=== PATIENT | female | born 1985 | race Caucasian/White ===

== ENCOUNTER → 2017-11-24 | Outpatient (REF) | payer BC | LOC: M SFHCLERA 14:42 | DX: J02.9 Acute pharyngitis, unspecified (principal) ==

== ENCOUNTER → 2017-11-29 | Outpatient (CLI) | payer BC | LOC: M LRY 18:49 | DX: R05 Cough (principal) ==

== ENCOUNTER → 2018-09-30 | Outpatient (REF) | payer BC | LOC: M SFHCLERA 10:48 | PROVIDERS: ATTEND Nurse Practitioner Family | DX: R30.0 Dysuria (principal) ==

== ENCOUNTER 2019-04-17 01:51 | Emergency (ER) | payer BC ==
[~2019-04-17] VITALS: Ht 165.1 cm; Wt 110.0 kg
[2019-04-17 01:52] VITALS: BP 173/102
[2019-04-17] MEDS ORDERED: ESCI10TA2 (02:05)
[2019-04-17] MEDS ORDERED: PROAAER10 (02:05)
[2019-04-17] MEDS ORDERED: IBUP-1022 PO (02:05)
[2019-04-17] MEDS ORDERED: CLIN300C5 (02:05)
== END 2019-04-17 03:46 | disposition home or self-care (01) ==
LOC: M ED 01:51
DX: K04.7 Periapical abscess without sinus (principal); S02.5XXA Fracture of tooth (traumatic), initial encounter for closed fracture; X58.XXXA Exposure to other specified factors, initial encounter; Y92.9 Unspecified place or not applicable; Y93.9 Activity, unspecified; Y99.9 Unspecified external cause status; E28.2 Polycystic ovarian syndrome; J45.909 Unspecified asthma, uncomplicated; Z79.899 Other long term (current) drug therapy; Z88.0 Allergy status to penicillin; Z88.8 Allergy status to other drugs, medicaments and biological substances

== ENCOUNTER 2019-07-30 07:08 | Emergency (ER) | payer BC ==
[~2019-07-30] VITALS: Ht 165.1 cm; Wt 110.0 kg
[~2019-07-30 07:08] MED LIST: CLIN300C5; ESCI10TA2; IBUP-1022 PO; PROAAER10
[2019-07-30 08:36] LABS: BASO % 0.4 % (0.0-1.0); EOS # 0.1 10^3/uL (0.0-0.5); EOS % 1.9 % (0.0-3.0); HEMATOCRIT 40.8 % (36.0-47.0); HEMOGLOBIN 13.6 g/dl (12.0-15.5); LYMPH # 1.1 10^3/uL (1.5-5.0); LYMPH % 16.5 % (24.0-44.0); MEAN CORPUSCULAR HEMOGLOBIN 26.4 pg (27.0-33.0); MEAN CORPUSCULAR HGB CONC 33.3 g/dl (32.0-36.5); MEAN CORPUSCULAR VOLUME 79.1 fl (80.0-96.0); MONO # 0.3 10^3/uL (0.0-0.8); MONO % 3.8 % (0.0-5.0); NEUTROPHILS # 5.3 10^3/uL (1.5-8.5); NEUTROPHILS % 77.1 % (36.0-66.0); PLATELET COUNT, AUTOMATED 300 10^3/uL (150-450); RED BLOOD COUNT 5.16 10^6/uL (4.00-5.40); WHITE BLOOD COUNT 6.9 10^3/uL (4.0-10.0)
[2019-07-30 09:00] LABS: BILIRUBIN,DIRECT 0.1 MG/DL (0.0-0.2); BILIRUBIN,TOTAL 0.3 MG/DL (0.2-1.0)
[2019-07-30] MEDS ORDERED: NS 1,000 ML IV ONE (09:00)
--- NOTE | 2019-07-30 09:23 | REP ---
CT abdomen and pelvis without IV or oral contrast: Renal stone protocol. History: Left flank pain. Comparison study: September 14, 2018. CT findings: Preliminary digital public health staff nurse radiograph is unremarkable. The lung bases are clear. Liver is normal in size, homogeneous in texture. The spleen is at the upper range of normal in size measuring 13 cm in greatest diameter. It is homogeneous. It is unchanged. No abnormalities noted in the gallbladder or in the pancreas. No adrenal lesion is seen on either side. There is no evidence of hydronephrosis or intrarenal calculus. No ureteral calculus or bladder stone is seen. There are phleboliths in the pelvis. No uterine or ovarian abnormality is observed. Small and large intestinal bowel loops are normal in the abdomen and pelvis. The appendix is surgically absent. There is a supraumbilical ventral hernia transmitting omental fat through a abdominal wall defect measuring only 7 mm in craniocaudal span. This is unchanged. No other abdominal wall defect is seen. Impression: No acute intra-abdominal abnormality. Ventral hernia transmitting a small quantity of omental fat in the supraumbilical midline. Status post appendectomy. No urinary tract calculus or hydronephrosis seen. Borderline size spleen unchanged. Electronically Signed by Constantino Rivera MD 07/30/2019 09:49 A
[2019-07-30] MEDS ORDERED: LIDOCAINE 5% (LIDODERM) PATCH TD ONE (09:45)
[2019-07-30] MEDS ORDERED: ROBA750T4 PO (09:56)
[2019-07-30] MEDS ORDERED: ACETAMINOPHEN 500 MG TAB PO ONE (10:00)
[2019-07-30 10:01] VITALS: BP 144/96
[2019-07-30] MEDS ORDERED: **NOTE PATIENT COMMENT** MISC XX SCH (21:00)
== END 2019-07-30 10:08 | disposition home or self-care (01) ==
LOC: M ED 07:08
DX: S39.012A Strain of muscle, fascia and tendon of lower back, initial encounter (principal); K43.9 Ventral hernia without obstruction or gangrene; R73.9 Hyperglycemia, unspecified; Z88.0 Allergy status to penicillin; Z88.1 Allergy status to other antibiotic agents; Y93.9 Activity, unspecified; Y92.89 Other specified places as the place of occurrence of the external cause

== ENCOUNTER → 2019-10-11 | Outpatient (CLI) | payer BC ==
[~2019-10-11] MED LIST changes: +ROBA750T4 PO
--- NOTE | 2019-10-11 13:46 | REP ---
CHEST, TWO VIEWS: Two views of the chest are performed and compared to a prior study of 11/29/2017. Prominent left cardiophrenic fat pad is noted. There is mild left perihilar infiltrate. Right lung is clear. The heart is not enlarged. Mediastinal silhouette otherwise appear unremarkable. There are mild degenerative changes of the spine. IMPRESSION: Mild left perihilar infiltrate. Electronically Signed by Jason Corado MD 10/11/2019 11:02 P
== END ==
LOC: M LRY 12:26
PROVIDERS: ATTEND Nurse Practitioner Family
DX: R05 Cough (principal)

== ENCOUNTER → 2021-10-15 | Outpatient (REF) ==
[~2021-10-15] MED LIST changes: +CLIN-250; -CLIN300C5; +ESCI10TA16; -ESCI10TA2
== END ==
LOC: M LABSMTC 09:22
PROVIDERS: ATTEND Pediatrics
DX: Z20.822 Contact with and (suspected) exposure to COVID-19 (principal)

== ENCOUNTER 2023-01-27 01:40 | Emergency (ER) | payer BC ==
[~2023-01-27] VITALS: Ht 165.1 cm; Wt 114.8 kg
[2023-01-27 02:13] LABS: BASO % 0.3 % (0.0-1.0); EOS # 0.1 10^3/uL (0.0-0.5); EOS % 1.9 % (0.0-3.0); HEMATOCRIT 36.2 % (36.0-47.0); LYMPH # 2.1 10^3/uL (1.5-5.0); LYMPH % 33.7 % (24.0-44.0); MEAN CORPUSCULAR HEMOGLOBIN 25.6 pg (27.0-33.0); MEAN CORPUSCULAR HGB CONC 33.1 g/dl (32.0-36.5); MEAN CORPUSCULAR VOLUME 77.4 fl (80.0-96.0); MONO # 0.4 10^3/uL (0.0-0.8); NEUTROPHILS # 3.5 10^3/uL (1.5-8.5); NEUTROPHILS % 56.9 % (36.0-66.0); PLATELET COUNT, AUTOMATED 281 10^3/uL (150-450); RED BLOOD COUNT 4.68 10^6/uL (4.00-5.40); WHITE BLOOD COUNT 6.2 10^3/uL (4.0-10.0)
[2023-01-27 02:57] LABS: BLOOD UREA NITROGEN 9 MG/DL (9-23); CALCIUM LEVEL 8.7 MG/DL (8.5-10.1); CARBON DIOXIDE LEVEL 25 MMOL/L (20-31); CHLORIDE LEVEL 105 MMOL/L (98-107); CK-MB VALUE MASS < 1.0 NG/ML (<3.6); CPK CREATINE PHOSPHOKINASE 60 U/L (34-145); CREATININE FOR GFR 0.88 MG/DL (0.55-1.30); GLOMERULAR FILTRATION RATE > 60.0 (>60); GLUCOSE, FASTING 130 MG/DL (60-100); MB/CK RELATIVE INDEX 1.66 (< OR =4); POTASSIUM SERUM 3.6 MMOL/L (3.5-5.1); SODIUM LEVEL 138 MMOL/L (136-145)
[2023-01-27 04:13] LABS: CK-MB VALUE MASS < 1.0 NG/ML (<3.6)
[2023-01-27 05:24] LABS: CPK CREATINE PHOSPHOKINASE 62 U/L (34-145); MB/CK RELATIVE INDEX 1.61 (< OR =4)
[2023-01-27 07:23] VITALS: BP 156/87
[2023-01-27] MEDS ORDERED: GI COCKTAIL 50ML BTL(HYOSCYAMINE/MAALOX/LIDOCAINE VISCOUS)(1:3:1) PO ONE (07:50)
== END 2023-01-27 08:58 | disposition home or self-care (01) ==
LOC: M ED 01:40
DX: M94.0 Chondrocostal junction syndrome [Tietze] (principal); R21 Rash and other nonspecific skin eruption; K30 Functional dyspepsia; K21.9 Gastro-esophageal reflux disease without esophagitis; J45.909 Unspecified asthma, uncomplicated; F41.9 Anxiety disorder, unspecified; Z88.0 Allergy status to penicillin; Z88.1 Allergy status to other antibiotic agents; Z79.52 Long term (current) use of systemic steroids; Z79.899 Other long term (current) drug therapy

== ENCOUNTER 2023-12-29 15:40 | Emergency (ER) | payer BC ==
[~2023-12-29] VITALS: Ht 165.1 cm; Wt 113.0 kg
[2023-12-29 16:41] LABS: BASO % 0.3 % (0.0-1.0); EOS # 0.1 10^3/uL (0.0-0.5); EOS % 1.2 % (0.0-3.0); HEMATOCRIT 39.2 % (36.0-47.0); HEMOGLOBIN 13.2 g/dl (12.0-15.5); LYMPH # 1.8 10^3/uL (1.5-5.0); MEAN CORPUSCULAR HEMOGLOBIN 26.4 pg (27.0-33.0); MEAN CORPUSCULAR HGB CONC 33.7 g/dl (32.0-36.5); MEAN CORPUSCULAR VOLUME 78.4 fl (80.0-96.0); MONO # 0.5 10^3/uL (0.0-0.8); MONO % 7.2 % (2.0-8.0); NEUTROPHILS # 4.4 10^3/uL (1.5-8.5); NEUTROPHILS % 65.2 % (36.0-66.0); PLATELET COUNT, AUTOMATED 314 10^3/uL (150-450); WHITE BLOOD COUNT 6.8 10^3/uL (4.0-10.0)
[2023-12-29 16:53] LABS: INR 1.02; PARTIAL THROMBOPLASTIN TIME 26.4 SECONDS (24.8-34.2); PROTHROMBIN TIME 13.1 SECONDS (12.5-14.5)
[2023-12-29 17:14] LABS: CK-MB VALUE MASS < 1.0 NG/ML (<3.6)
[2023-12-29 17:15] LABS: BLOOD UREA NITROGEN 9 MG/DL (9-23); CARBON DIOXIDE LEVEL 23 MMOL/L (20-31); CHLORIDE LEVEL 106 MMOL/L (98-107); CREATININE FOR GFR 0.75 MG/DL (0.55-1.30); GLOMERULAR FILTRATION RATE > 60.0 (>60); GLUCOSE, FASTING 163 MG/DL (60-100); MAGNESIUM LEVEL 1.8 MG/DL (1.8-2.4); POTASSIUM SERUM 3.5 MMOL/L (3.5-5.1); SODIUM LEVEL 139 MMOL/L (136-145)
[2023-12-29 17:17] LABS: THYROID STIMULATING HORMONE 2.151 uIU/ML (0.55-4.78)
[2023-12-29 17:25] LABS: CPK CREATINE PHOSPHOKINASE 63 U/L (34-145); MB/CK RELATIVE INDEX 1.58 (< OR =4)
[2023-12-29 17:27] LABS: HCG, SERUM QUALITATIVE NEGATIVE (NEGATIVE)
[2023-12-29 17:48] LABS: D-DIMER QUANT 0.31 ug/mL (<0.5)
[2023-12-29 19:57] LABS: FREE T4 1.18 NG/DL (0.89-1.76)
[2023-12-29] MEDS ORDERED: HOLTER MONITOR XX (20:35)
[2023-12-29 20:46] LABS: CK-MB VALUE MASS < 1.0 NG/ML (<3.6)
[2023-12-29 20:54] LABS: CPK CREATINE PHOSPHOKINASE 62 U/L (34-145); MB/CK RELATIVE INDEX 1.61 (< OR =4)
[2023-12-29 22:39] VITALS: BP 145/83; TEMP 98.3; O2SAT 98
== END 2023-12-29 22:58 | disposition home or self-care (01) ==
LOC: M ED 15:40
DX: R00.2 Palpitations (principal); R00.0 Tachycardia, unspecified; I25.2 Old myocardial infarction; J45.909 Unspecified asthma, uncomplicated; F41.9 Anxiety disorder, unspecified; F32.A Depression, unspecified; E28.2 Polycystic ovarian syndrome; F17.210 Nicotine dependence, cigarettes, uncomplicated; Z88.0 Allergy status to penicillin; Z88.1 Allergy status to other antibiotic agents; Z88.8 Allergy status to other drugs, medicaments and biological substances

== ENCOUNTER → 2023-12-30 | Outpatient (CLI) | payer BC ==
[~2023-12-30] MED LIST changes: +HOLTER MONITOR XX
== END ==
LOC: M EKG 13:11
PROVIDERS: ATTEND Physician Assistant Medical
DX: R00.2 Palpitations (principal)